=== PATIENT | male | born 1960 | race African-American/Black ===

== ENCOUNTER 2023-01-25 17:48 | Observation (INO) | payer SELFPAY ==
[2023-01-25 18:29] LABS: Hemoglobin 13.7 g/dL (14.0-18.0); Mean Corpuscular HGB CONC 35.2 g/dL (32.0-36.0); Mean Corpuscular Hemoglobin 37.5 pg (27.0-31.0); Mean Platelet Volume 8.3 fL (7.4-10.4); Platelet Count 179 10x3/uL (130-400); RBC Distribution Width 13.1 % (11.5-14.5); Red Blood Cell (RBC) Count 3.66 mill/uL (4.70-6.10); White Blood Cell (WBC) Count 7.7 10x3/uL (4.8-10.8)
[2023-01-25 18:43] LABS: Lymphocytes 36 % (21-51); MDiff Complete? YES; Macrocytosis SLIGHT = 6-15 cells (100X) (0-5/hpf); Monocytes 7 % (0-10); Neutrophil 52 % (42-75); Platelet Morphology Comment Appears Adequate; Reactive Lymphocytes 3 % (0-10); Target Cells SLIGHT = 2-5 cells (100X) (0-1/hpf)
[2023-01-25 18:47] LABS: ALT (SGPT) 61 U/L (8-55); AST (SGOT) 58 U/L (5-34); Albumin 3.7 g/dL (3.4-4.8); Alkaline Phosphatase 71 U/L (40-110); Anion Gap 15 mmol/L (10-20); BUN (Urea Nitrogen) 12 mg/dL (8.4-25.7); Bilirubin, Total 0.2 mg/dL (0.2-1.2); Calc. Creatinine Clearance 0 mL/min (70-130); Calcium 9.6 mg/dL (7.8-10.44); Carbon Dioxide 26 mmol/L (23-31); Chloride 107 mmol/L (98-107); Estimated GFR 40; Globulin 4.3 g/dL (2.4-3.5); Glucose 81 mg/dL (80-115); Lipase 66 U/L (8-78); Potassium 4.1 mmol/L (3.5-5.1); Sodium 144 mmol/L (136-145)
[2023-01-25] MEDS ORDERED: Ondansetron PF 4 MG/2 ML Vial IVP PRN (21:06)
[2023-01-25] MEDS ORDERED: Acetaminophen 325 MG TAB PO PRN (21:06)
[2023-01-25] MEDS ORDERED: Lorazepam 2 MG/ML VIAL IM PRN (21:09)
[2023-01-25] MEDS ORDERED: Lorazepam 1 MG TAB PO PRN (21:09)
[2023-01-25] MEDS ORDERED: Ondansetron ODT 4 MG TAB PO PRN (21:09)
[2023-01-25] MEDS ORDERED: Electrolyte Replacement Protocol 1 EACH FS SCH (21:15)
[2023-01-25] MEDS ORDERED: Thiamine HCl 200 MG/2 ML VIAL SLOW IVP SCH (21:15)
[2023-01-25] MEDS ORDERED: Nicotine 14 MG PATCH TD SCH (21:45)
[2023-01-25 22:34] LABS: Acetaminophen Less than 10.0 mcg/mL (10.0-30.0); Alcohol 267 mg/dL (Less than 10); Salicylate Less than 8.0 mg/dL (15.0-30.0)
[2023-01-25] MEDS: Lorazepam 1 MG TAB PO SCH (23:56)
[2023-01-25] MEDS: Sodium Chloride 0.9% 1,000 ML IV SCH (23:56)
[2023-01-26 00:16] VITALS: BMI 24.9
[2023-01-26] MEDS: Lorazepam 1 MG TAB PO SCH ×3 (03:15→15:22)
[2023-01-26 05:04] LABS: #Basophils 0.1 thou/uL (0.0-0.2); #Eosinphils 0.2 thou/uL (0.0-0.7); #Lymphocytes 2.4 thou/uL (1.20-3.40); #Monocytes 0.6 thou/uL (0.11-0.59); #Neutrophils 3.1 thou/uL (1.40-6.50); %Basophils 1.3 % (0.0-1.0); %Eosinophils 2.8 % (0.0-10.0); %Lymphocytes 38.3 % (21.0-51.0); %Monocytes 8.8 % (0.0-10.0); %Neutrophils 48.8 % (42.0-75.0); Hemoglobin 12.4 g/dL (14.0-18.0); Mean Corpuscular HGB CONC 33.6 g/dL (32.0-36.0); Mean Corpuscular Hemoglobin 36.3 pg (27.0-31.0); Mean Platelet Volume 7.9 fL (7.4-10.4); Platelet Count 224 10x3/uL (130-400); RBC Distribution Width 13.3 % (11.5-14.5); Red Blood Cell (RBC) Count 3.41 mill/uL (4.70-6.10); White Blood Cell (WBC) Count 6.3 10x3/uL (4.8-10.8)
[2023-01-26 05:15] LABS: PTT 27.7 sec (22.9-36.1); Prothrombin Time 13.4 sec (12.0-14.7)
[2023-01-26 05:26] LABS: ALT (SGPT) 48 U/L (8-55); AST (SGOT) 45 U/L (5-34); Albumin 3.5 g/dL (3.4-4.8); Alkaline Phosphatase 70 U/L (40-110); Anion Gap 15 mmol/L (10-20); BUN (Urea Nitrogen) 12 mg/dL (8.4-25.7); Bilirubin, Total 0.2 mg/dL (0.2-1.2); Calc. Creatinine Clearance 67 mL/min (70-130); Calcium 8.6 mg/dL (7.8-10.44); Carbon Dioxide 19 mmol/L (23-31); Chloride 110 mmol/L (98-107); Estimated GFR 69; Globulin 3.5 g/dL (2.4-3.5); Glucose 78 mg/dL (80-115); Magnesium 1.6 mg/dL (1.6-2.6); Phosphorus 3.1 mg/dL (2.3-4.7); Potassium 4.4 mmol/L (3.5-5.1); Sodium 140 mmol/L (136-145)
[2023-01-26 07:41] LABS: Amphetamine Not Detected (NotDetected); Barbiturates Screen Not Detected (NotDetected); Benzodiazepine Screen Not Detected (NotDetected); Cocaine Metabolite Screen Not Detected (NotDetected); Methadone Not Detected (NotDetected); Methamphetamine Not Detected (NotDetected); Opiate Screen Not Detected (NotDetected); Oxycodone Screen Not Detected (NotDetected); Phencyclidine (PCP) Not Detected (NotDetected); THC/Cannabinoid Screen Not Detected (NotDetected); Tricyclic Screen Not Detected (NotDetected)
[2023-01-26] MEDS ORDERED: Magnesium 2 GM/50 ML(in water) 2 GM in Premix Bag 1 BAG IVPB SCH (08:00)
[2023-01-26] MEDS ORDERED: Multivit, Therapeutic 1 TAB PO SCH (09:00)
[2023-01-26] MEDS ORDERED: Folic Acid 1 MG TAB PO SCH (09:00)
[2023-01-26] MEDS: Sodium Chloride 0.9% 1,000 ML IV SCH (15:23)
[2023-01-26 16:07] VITALS: BP 174/96; TEMP 99
[2023-01-26] MEDS ORDERED: Lorazepam 1 MG TAB PO PRN (21:09)
[2023-01-27] MEDS ORDERED: Lorazepam 1 MG TAB PO PRN (21:09)
[2023-01-27] MEDS ORDERED: Lorazepam 0.5 MG TAB PO SCH (21:15)
[2023-01-28] MEDS ORDERED: Lorazepam 0.5 MG TAB PO PRN (21:09)
[2023-01-28] MEDS ORDERED: Thiamine 100 MG TAB PO SCH (21:15)
== END 2023-01-26 17:40 | disposition home or self-care (01) ==
LOC: ERS 17:48 → 2SW 21:06
PROVIDERS: ADMIT Hospitalist; ATTEND Hospitalist
DX: R55 Syncope and collapse (principal); F10.20 Alcohol dependence, uncomplicated; F17.210 Nicotine dependence, cigarettes, uncomplicated; N17.9 Acute kidney failure, unspecified; J32.0 Chronic maxillary sinusitis; Y90.8 Blood alcohol level of 240 mg/100 ml or more
CPT/HCPCS: 36415; 70450; 71045; 80053; 80306; 80307; 83690; 83735; 83880; 84100; 84484; 85025; 85610; 85730; 93005; 93306; 93880; 96374; 96375; G0378; J3411; J3475; J7050